=== PATIENT | male | born 1980 | race Caucasian/White ===

== ENCOUNTER → 2019-05-30 | Outpatient (CLI) | payer BC, OTHER ==
[~2019-05-30] MED LIST: ACET65TA OR; CELE1CAP4 OR; CETI10TA OR; DEPA500T OR; FLEXERIL OR; FLON0.05; GABA600T3 OR; LEXA1TAB OR; PERC5TAB8 OR; PERC7.5T8 OR; SERO1TAB3 OR; ZYRT10TA6 OR
--- NOTE | 2019-05-30 10:33 | REP ---
Clinical: Cough left clavicle pain with history of prior fixation. Technique: Internal rotation, external rotation, neutral view, and Y view of the left shoulder. Findings: There is evidence for prior clavicle fracture with orthopedic plate and screws in stable satisfactory position. The acromioclavicular and glenohumeral joints are relatively normal for age. The subacromial space is normal. No periarticular calcifications or loose bodies are identified. Surrounding soft tissues are normal. Impression: 1. Age-appropriate appearance to the acromioclavicular and glenohumeral joints. 2. Left clavicle with prior fixation remains stable. Electronically Signed by Jonah Monge MD 05/30/2019 10:25 A
== END ==
LOC: M LRY 09:59
PROVIDERS: ATTEND Physician Assistant
DX: Z98.890 Other specified postprocedural states (principal)

== ENCOUNTER 2023-12-26 10:49 | Emergency (ER) | payer OTHER ==
[~2023-12-26] VITALS: Ht 175.3 cm; Wt 107.0 kg
[~2023-12-26 10:49] MED LIST changes: -FLEXERIL OR; +FLEXERIL PO
[2023-12-26] MEDS ORDERED: LISI5TAB11 PO (11:20)
[2023-12-26] MEDS ORDERED: CITA10TA7 PO (11:20)
[2023-12-26] MEDS ORDERED: DIVA500T9 PO (11:20)
[2023-12-26] MEDS ORDERED: PANT20TA6 (11:20)
[2023-12-26] MEDS ORDERED: GABA-1171 (11:20)
[2023-12-26] MEDS ORDERED: QUET1TAB17 PO (11:20)
[2023-12-26] MEDS ORDERED: LABETALOL 100MG/20ML VIAL IV STA (12:44)
[2023-12-26] MEDS ORDERED: METOCLOPRAMIDE INJ 10MG/2ML VIAL IV ONE (13:05)
[2023-12-26] MEDS ORDERED: ISOVUE-370 76% 100ML VIAL As Ordered ONE (13:06)
[2023-12-26 13:09] LABS: BASO % 0.4 % (0.0-1.0); EOS # 0.1 10^3/uL (0.0-0.5); HEMATOCRIT 41.7 % (42.0-52.0); HEMOGLOBIN 14.3 g/dl (13.5-17.5); LYMPH # 1.8 10^3/uL (1.5-5.0); LYMPH % 24.6 % (24.0-44.0); MEAN CORPUSCULAR HEMOGLOBIN 29.4 pg (27.0-33.0); MEAN CORPUSCULAR HGB CONC 34.3 g/dl (32.0-36.5); MEAN CORPUSCULAR VOLUME 85.8 fl (80.0-96.0); MONO # 0.7 10^3/uL (0.0-0.8); MONO % 10.3 % (2.0-8.0); NEUTROPHILS # 4.5 10^3/uL (1.5-8.5); NEUTROPHILS % 63.4 % (36.0-66.0); PLATELET COUNT, AUTOMATED 275 10^3/uL (150-450); RED BLOOD COUNT 4.86 10^6/uL (4.30-6.10); WHITE BLOOD COUNT 7.1 10^3/uL (4.0-10.0)
[2023-12-26] MEDS ORDERED: NS 1,000 ML IV SCH (13:10)
[2023-12-26] MEDS ORDERED: hydroCHLOROthiazide 12.5 MG CAPSULE PO ONE (13:10)
[2023-12-26 13:19] LABS: INR 1.1; PROTHROMBIN TIME 13.9 SECONDS (12.5-14.5)
[2023-12-26 13:20] LABS: PARTIAL THROMBOPLASTIN TIME 32.8 SECONDS (24.8-34.2)
[2023-12-26 13:30] VITALS: BP 137/86; TEMP 97.9; O2SAT 97
[2023-12-26 13:33] LABS: CK-MB VALUE MASS < 1.0 NG/ML (<3.6)
[2023-12-26 13:35] LABS: BLOOD UREA NITROGEN 12 MG/DL (9-23); CALCIUM LEVEL 9.4 MG/DL (8.5-10.1); CARBON DIOXIDE LEVEL 28 MMOL/L (20-31); CHLORIDE LEVEL 105 MMOL/L (98-107); CREATININE FOR GFR 0.85 MG/DL (0.70-1.30); GLOMERULAR FILTRATION RATE > 60.0 (>60); GLUCOSE, FASTING 91 MG/DL (60-100); POTASSIUM SERUM 3.9 MMOL/L (3.5-5.1); SODIUM LEVEL 139 MMOL/L (136-145)
[2023-12-26 13:42] LABS: CPK CREATINE PHOSPHOKINASE 508 U/L (46-171); MB/CK RELATIVE INDEX 0.19 (< OR =4)
[2023-12-26 13:45] VITALS: O2SAT 97
[2023-12-26 14:00] VITALS: BP 125/88; O2SAT 97
[2023-12-26 15:00] VITALS: BP 136/98; O2SAT 96
[2023-12-26] MEDS ORDERED: HYDR12.55 PO (20:38)
== END 2023-12-26 21:03 | disposition home or self-care (01) ==
LOC: M ED 13:37
DX: R42 Dizziness and giddiness (principal); I10 Essential (primary) hypertension; F32.A Depression, unspecified; G43.909 Migraine, unspecified, not intractable, without status migrainosus; Z88.8 Allergy status to other drugs, medicaments and biological substances; Z79.899 Other long term (current) drug therapy; Z79.1 Long term (current) use of non-steroidal anti-inflammatories (NSAID)
CPT/HCPCS: 36415; 70450; 70496; 70498; 70544; 70551; 71045; 80048; 82550; 82553; 84484; 85025; 85610; 85730; 93005; 93041; 94760; 96361; 96374; 99285; J2765; Q9967

== ENCOUNTER 2023-12-29 10:51 | Emergency (ER) | payer OTHER ==
[~2023-12-29] VITALS: Ht 175.3 cm; Wt 107.1 kg
[~2023-12-29 10:51] MED LIST changes: +CITA10TA7 PO; +DIVA500T9 PO; +GABA-1171; +HYDR12.55 PO; +LISI5TAB11 PO; +PANT20TA6; +QUET1TAB17 PO
[2023-12-29] MEDS ORDERED: EPIN0.3I11 SQ (11:09)
[2023-12-29] MEDS: NITROGLYCERIN 0.4MG SUBL TABLET SL PRN ×2 (11:16→11:26)
[2023-12-29 11:17] LABS: BASO % 0.6 % (0.0-1.0); EOS # 0.2 10^3/uL (0.0-0.5); EOS % 2.2 % (0.0-3.0); HEMATOCRIT 41.9 % (42.0-52.0); HEMOGLOBIN 14.3 g/dl (13.5-17.5); LYMPH # 2.1 10^3/uL (1.5-5.0); MEAN CORPUSCULAR HEMOGLOBIN 29.4 pg (27.0-33.0); MEAN CORPUSCULAR HGB CONC 34.1 g/dl (32.0-36.5); MEAN CORPUSCULAR VOLUME 86.2 fl (80.0-96.0); MONO # 0.8 10^3/uL (0.0-0.8); MONO % 11.5 % (2.0-8.0); NEUTROPHILS # 3.8 10^3/uL (1.5-8.5); NEUTROPHILS % 55.4 % (36.0-66.0); PLATELET COUNT, AUTOMATED 255 10^3/uL (150-450); RED BLOOD COUNT 4.86 10^6/uL (4.30-6.10); WHITE BLOOD COUNT 6.8 10^3/uL (4.0-10.0)
[2023-12-29 11:26] VITALS: BP 130/83
[2023-12-29] MEDS ORDERED: ACETAMINOPHEN 325 MG TAB PO ONE (11:30)
[2023-12-29 11:33] LABS: INR 1.11
[2023-12-29 11:43] LABS: CK-MB VALUE MASS < 1.0 NG/ML (<3.6); LIPASE 29 U/L (12-53)
[2023-12-29 11:45] LABS: ALKALINE PHOSPHATASE 93 U/L (46-116); ALT/SGPT 61 U/L (7.0-40); AST/SGOT 26 U/L (<34); BILIRUBIN,DIRECT 0.3 MG/DL (<0.4); BILIRUBIN,TOTAL 0.8 MG/DL (0.3-1.2); BLOOD UREA NITROGEN 17 MG/DL (9-23); CALCIUM LEVEL 9.4 MG/DL (8.5-10.1); CARBON DIOXIDE LEVEL 27 MMOL/L (20-31); CHLORIDE LEVEL 107 MMOL/L (98-107); CPK CREATINE PHOSPHOKINASE 143 U/L (46-171); CREATININE FOR GFR 0.99 MG/DL (0.70-1.30); GLOMERULAR FILTRATION RATE > 60.0 (>60); GLUCOSE, FASTING 97 MG/DL (60-100); MB/CK RELATIVE INDEX 0.69 (< OR =4); POTASSIUM SERUM 4.1 MMOL/L (3.5-5.1); SODIUM LEVEL 139 MMOL/L (136-145); TOTAL PROTEIN 6.9 G/DL (5.7-8.2)
[2023-12-29 11:47] LABS: THYROID STIMULATING HORMONE 0.743 uIU/ML (0.55-4.78)
[2023-12-29] MEDS ORDERED: ISOVUE-370 76% 100ML VIAL As Ordered ONE (11:55)
[2023-12-29 13:03] LABS: CK-MB VALUE MASS < 1.0 NG/ML (<3.6)
[2023-12-29 13:04] LABS: CPK CREATINE PHOSPHOKINASE 118 U/L (46-171); MB/CK RELATIVE INDEX 0.84 (< OR =4)
[2023-12-29] MEDS ORDERED: HYDR12.55 PO (13:20)
[2023-12-29] MEDS ORDERED: CETI-24 PO (13:20)
[2023-12-29] MEDS ORDERED: NEUR100C PO (13:20)
[2023-12-29] MEDS ORDERED: CELE0.09 PO (13:20)
[2023-12-29] MEDS ORDERED: CYCL-707 PO (13:22)
[2023-12-29] MEDS ORDERED: FLUT15.819 (13:27)
[2023-12-29] MEDS ORDERED: HOME MED LIST COMPLETE! XX SCH (13:45)
[2023-12-29 13:52] VITALS: BP 142/92; TEMP 97.6; O2SAT 96
== END 2023-12-29 14:04 | disposition home or self-care (01) ==
LOC: M ED 10:51
DX: R07.9 Chest pain, unspecified (principal); I10 Essential (primary) hypertension; G43.909 Migraine, unspecified, not intractable, without status migrainosus; Z91.030 Bee allergy status; Z88.8 Allergy status to other drugs, medicaments and biological substances; Z79.891 Long term (current) use of opiate analgesic; Z79.811 Long term (current) use of aromatase inhibitors; Z79.899 Other long term (current) drug therapy
CPT/HCPCS: 36415; 71045; 71275; 80048; 80076; 82550; 82553; 83690; 83880; 84443; 84484; 85025; 85610; 93005; 93041; 94760; 99285; Q9967

== ENCOUNTER 2024-04-30 10:55 | Emergency (ER) | payer OTHER ==
[~2024-04-30] VITALS: Ht 175.3 cm; Wt 105.1 kg
[~2024-04-30 10:55] MED LIST changes: +CELE0.09 PO; +CETI-24 PO; +CYCL-707 PO; +EPIN0.3I11 SQ; +FLUT15.819; +NEUR100C PO
[2024-04-30 12:17] LABS: APPEARANCE, URINE HAZY (CLEAR); BACTERIA, URINE AUTO NEGATIVE (NEGATIVE); BILIRUBIN, URINE AUTO NEGATIVE (NEGATIVE); BLOOD, URINE BLOOD NEGATIVE (NEGATIVE); COLOR, URINE STRAW (YELLOW); GLUCOSE, URINE (UA) AUTO NEGATIVE (NEGATIVE); KETONE, URINE AUTO NEGATIVE (NEGATIVE); LEUKOCYTE ESTERASE, URINE AUTO NEGATIVE (NEGATIVE); NITRITE, URINE AUTO NEGATIVE (NEGATIVE); PROTEIN, URINE AUTO NEGATIVE (NEGATIVE); RBC, URINE AUTO 0 /HPF (0-3); SPECIFIC GRAVITY URINE AUTO 1.006 (1.002-1.035); SQUAMOUS EPITHELIAL CELL UR AU 0 /HPF (0-6); UROBILINOGEN, URINE AUTO 0.2 mg/dL (0.0-2.0); WBC, URINE AUTO 1 /HPF (0-3)
[2024-04-30 14:12] LABS: BASO % 0.5 % (0.0-1.0); EOS # 0.2 10^3/uL (0.0-0.5); EOS % 3.1 % (0.0-3.0); HEMATOCRIT 39.4 % (42.0-52.0); HEMOGLOBIN 13.5 g/dl (13.5-17.5); LYMPH # 2.1 10^3/uL (1.5-5.0); LYMPH % 34.1 % (24.0-44.0); MEAN CORPUSCULAR HEMOGLOBIN 29.7 pg (27.0-33.0); MEAN CORPUSCULAR HGB CONC 34.3 g/dl (32.0-36.5); MEAN CORPUSCULAR VOLUME 86.6 fl (80.0-96.0); MONO # 0.6 10^3/uL (0.0-0.8); MONO % 10.1 % (2.0-8.0); NEUTROPHILS # 3.2 10^3/uL (1.5-8.5); PLATELET COUNT, AUTOMATED 245 10^3/uL (150-450); RED BLOOD COUNT 4.55 10^6/uL (4.30-6.10); WHITE BLOOD COUNT 6.2 10^3/uL (4.0-10.0)
[2024-04-30 14:43] LABS: LIPASE 25 U/L (12-53)
[2024-04-30 14:45] LABS: ALBUMIN 4.3 G/DL (3.2-5.2); ALKALINE PHOSPHATASE 84 U/L (46-116); ALT/SGPT 38 U/L (7.0-40); AST/SGOT 19 U/L (<34); BILIRUBIN,DIRECT 0.3 MG/DL (<0.4); TOTAL PROTEIN 7.1 G/DL (5.7-8.2)
[2024-04-30 16:24] LABS: BLOOD UREA NITROGEN 17 MG/DL (9-23); CALCIUM LEVEL 9.4 MG/DL (8.5-10.1); CARBON DIOXIDE LEVEL 28 MMOL/L (20-31); CHLORIDE LEVEL 104 MMOL/L (98-107); CREATININE FOR GFR 0.89 MG/DL (0.70-1.30); GLOMERULAR FILTRATION RATE > 60.0 (>60); GLUCOSE, FASTING 82 MG/DL (60-100); POTASSIUM SERUM 3.8 MMOL/L (3.5-5.1); SODIUM LEVEL 137 MMOL/L (136-145)
[2024-04-30] MEDS: ONDANSETRON 4MG 2ML VIAL IV ONE (17:54)
[2024-04-30] MEDS: NS 1,000 ML IV ONE (17:55)
[2024-04-30] MEDS: KETOROLAC 30 MG/ML 1ML VIAL IV ONE (17:55)
[2024-04-30] MEDS ORDERED: MIRA3350 PO (20:37)
[2024-04-30 20:50] VITALS: BP 139/71; TEMP 97.6; O2SAT 98
== END 2024-04-30 20:49 | disposition home or self-care (01) ==
LOC: M ED 10:55
DX: K59.00 Constipation, unspecified (principal); K21.9 Gastro-esophageal reflux disease without esophagitis; I10 Essential (primary) hypertension; K57.92 Diverticulitis of intestine, part unspecified, without perforation or abscess without bleeding; K44.9 Diaphragmatic hernia without obstruction or gangrene; Z91.030 Bee allergy status; Z88.8 Allergy status to other drugs, medicaments and biological substances; Z79.811 Long term (current) use of aromatase inhibitors; Z79.899 Other long term (current) drug therapy
CPT/HCPCS: 74176; 80048; 80076; 81001; 83690; 85025; 96374; 96375; 99284; J1885; J2405

== ENCOUNTER 2024-07-13 11:33 | Emergency (ER) | payer OTHER ==
[~2024-07-13] VITALS: Ht 175.3 cm; Wt 106.1 kg
[~2024-07-13 11:33] MED LIST changes: +ASPI-226 PO; +HYDR12CA PO; +METO1TAB87 PO; +MIRA3350 PO; +NEXI40GR PO; +PANT40TA29 PO; +SUCR1TAB56 PO; +VALS1TAB67 PO
[2024-07-13] MEDS ORDERED: ISOVUE-370 76% 100ML VIAL As Ordered ONE (11:52)
[2024-07-13 11:54] VITALS: BP 137/92; TEMP 96.8; O2SAT 99
[2024-07-13 12:01] LABS: BASO # 0.1 10^3/uL (0.0-0.2); BASO % 0.9 % (0.0-1.0); EOS # 0.2 10^3/uL (0.0-0.5); EOS % 2.7 % (0.0-3.0); HEMATOCRIT 36.7 % (42.0-52.0); HEMOGLOBIN 12.4 g/dl (13.5-17.5); LYMPH % 36.6 % (24.0-44.0); MEAN CORPUSCULAR HEMOGLOBIN 29.7 pg (27.0-33.0); MEAN CORPUSCULAR HGB CONC 33.8 g/dl (32.0-36.5); MONO # 0.7 10^3/uL (0.0-0.8); MONO % 13.3 % (2.0-8.0); NEUTROPHILS # 2.6 10^3/uL (1.5-8.5); NEUTROPHILS % 46.1 % (36.0-66.0); PLATELET COUNT, AUTOMATED 206 10^3/uL (150-450); RED BLOOD COUNT 4.17 10^6/uL (4.30-6.10); WHITE BLOOD COUNT 5.6 10^3/uL (4.0-10.0)
[2024-07-13 12:16] LABS: INR 1.19; PARTIAL THROMBOPLASTIN TIME 35.7 SECONDS (24.8-34.2); PROTHROMBIN TIME 14.8 SECONDS (12.5-14.5)
[2024-07-13 12:26] LABS: BLOOD UREA NITROGEN 22 MG/DL (9-23); CALCIUM LEVEL 9.1 MG/DL (8.5-10.1); CARBON DIOXIDE LEVEL 28 MMOL/L (20-31); CHLORIDE LEVEL 109 MMOL/L (98-107); CREATININE FOR GFR 0.94 MG/DL (0.70-1.30); GLOMERULAR FILTRATION RATE > 60.0 (>60); GLUCOSE, FASTING 86 MG/DL (60-100); POTASSIUM SERUM 3.7 MMOL/L (3.5-5.1); SODIUM LEVEL 142 MMOL/L (136-145)
[2024-07-13] MEDS: NS 1,000 ML IV ONE (14:03)
[2024-07-13] MEDS: diphenhydrAMINE 50MG/ML VIAL IV ONE (14:39)
[2024-07-13] MEDS: KETOROLAC 30 MG/ML 1ML VIAL IV ONE (14:39)
[2024-07-13] MEDS: METOCLOPRAMIDE INJ 10MG/2ML VIAL IV ONE (14:39)
[2024-07-13 16:20] VITALS: BP 141/94; TEMP 98.2; O2SAT 100
== END 2024-07-13 16:26 | disposition home or self-care (01) ==
LOC: M ED 11:33 → EDBD 11:33 → M ED 16:26
DX: G43.809 Other migraine, not intractable, without status migrainosus (principal); K44.9 Diaphragmatic hernia without obstruction or gangrene; K21.9 Gastro-esophageal reflux disease without esophagitis; F41.9 Anxiety disorder, unspecified; F43.10 Post-traumatic stress disorder, unspecified; F32.9 Major depressive disorder, single episode, unspecified; Z87.820 Personal history of traumatic brain injury; Z91.030 Bee allergy status; Z88.8 Allergy status to other drugs, medicaments and biological substances; Z79.82 Long term (current) use of aspirin; Z79.899 Other long term (current) drug therapy
CPT/HCPCS: 70450; 70496; 70498; 71045; 80047; 80048; 85025; 85610; 85730; 93005; 93041; 94760; 96361; 96374; 99285; J1200; J1885; J2765; Q9967

== ENCOUNTER 2024-07-25 09:26 | Day surgery (SDC) | payer OTHER ==
[~2024-07-25] VITALS: Ht 175.3 cm; Wt 104.2 kg
[2024-07-25] MEDS: NS 1,000 ML IV ONE (10:04)
[2024-07-25] MEDS ORDERED: propofoL 200 MG/20 ML VIAL As Ordered ONE (10:17)
[2024-07-25] MEDS ORDERED: LIDOCAINE 2% 100MG/5ML SDV (FOR ANES.) As Ordered ONE (10:17)
[2024-07-25 11:31] VITALS: TEMP 98.8
[2024-07-25 11:45] VITALS: BP 161/95; O2SAT 98
== END 2024-07-25 12:01 | disposition home or self-care (01) ==
LOC: M OPP 09:26
PROVIDERS: ATTEND Internal Medicine Gastroenterology
DX: Z86.010 Personal history of colon polyps (principal); D12.6 Benign neoplasm of colon, unspecified; K64.0 First degree hemorrhoids; K57.30 Diverticulosis of large intestine without perforation or abscess without bleeding; K44.9 Diaphragmatic hernia without obstruction or gangrene; K29.50 Unspecified chronic gastritis without bleeding; R12 Heartburn; I10 Essential (primary) hypertension; Z79.1 Long term (current) use of non-steroidal anti-inflammatories (NSAID); Z79.82 Long term (current) use of aspirin; Z79.891 Long term (current) use of opiate analgesic; Z79.899 Other long term (current) drug therapy; Z88.8 Allergy status to other drugs, medicaments and biological substances; Z91.030 Bee allergy status

== ENCOUNTER 2025-03-31 14:10 | Emergency (ER) | payer OTHER ==
[~2025-03-31] VITALS: Ht 175.3 cm; Wt 240.0 kg
[2025-03-31 14:32] LABS: BASO % 0.4 % (0.0-1.0); EOS # 0.3 10^3/uL (0.0-0.5); EOS % 3.1 % (0.0-3.0); HEMATOCRIT 36.8 % (42.0-52.0); HEMOGLOBIN 12.8 g/dl (13.5-17.5); LYMPH # 2.2 10^3/uL (1.5-5.0); LYMPH % 23.4 % (24.0-44.0); MEAN CORPUSCULAR HEMOGLOBIN 29.9 pg (27.0-33.0); MEAN CORPUSCULAR HGB CONC 34.8 g/dl (32.0-36.5); MONO # 1.3 10^3/uL (0.0-0.8); MONO % 13.7 % (2.0-8.0); NEUTROPHILS # 5.6 10^3/uL (1.5-8.5); PLATELET COUNT, AUTOMATED 232 10^3/uL (150-450); RED BLOOD COUNT 4.28 10^6/uL (4.30-6.10); WHITE BLOOD COUNT 9.5 10^3/uL (4.0-10.0)
[2025-03-31] MEDS: ACETAMINOPHEN *IV* 1,000 MG in IV 1 EA IV ONE (14:42)
[2025-03-31 14:47] LABS: INR 0.99; PARTIAL THROMBOPLASTIN TIME 29.2 SECONDS (24.8-34.2); PROTHROMBIN TIME 13.4 SECONDS (12.5-14.5)
[2025-03-31 15:06] LABS: CPK CREATINE PHOSPHOKINASE 229 U/L (46-171)
[2025-03-31 15:11] LABS: ALBUMIN 3.7 G/DL (3.2-5.2); ALKALINE PHOSPHATASE 95 U/L (40-129); ALT/SGPT 46 U/L (7.0-40); AST/SGOT 21 U/L (<34); BILIRUBIN,DIRECT 0.2 MG/DL (<0.4); BILIRUBIN,TOTAL 0.7 MG/DL (0.3-1.2); BLOOD UREA NITROGEN 15 MG/DL (9-23); CALCIUM LEVEL 8.5 MG/DL (8.5-10.1); CARBON DIOXIDE LEVEL 27 MMOL/L (20-31); CHLORIDE LEVEL 100 MMOL/L (98-107); CK-MB VALUE MASS < 1.0 NG/ML (<3.6); CREATININE FOR GFR 0.89 MG/DL (0.70-1.30); FREE T4 1.48 NG/DL (0.89-1.76); GLOMERULAR FILTRATION RATE > 90.0 (>60); GLUCOSE, FASTING 103 MG/DL (60-100); MB/CK RELATIVE INDEX 0.43 (< OR =4); POTASSIUM SERUM 3.1 MMOL/L (3.5-5.1); SODIUM LEVEL 138 MMOL/L (136-145); THYROID STIMULATING HORMONE 1.572 uIU/ML (0.55-4.78); TOTAL PROTEIN 6.6 G/DL (5.7-8.2)
[2025-03-31] MEDS ORDERED: ISOVUE-370 76% 100ML VIAL As Ordered ONE (15:30)
[2025-03-31 16:37] LABS: CK-MB VALUE MASS < 1.0 NG/ML (<3.6)
[2025-03-31 16:39] LABS: CPK CREATINE PHOSPHOKINASE 200 U/L (46-171)
[2025-03-31] MEDS: KETOROLAC 30 MG/ML 1ML VIAL IV ONE (16:57)
[2025-03-31 17:00] VITALS: BP 121/76; TEMP 97.9; O2SAT 97
== END 2025-03-31 17:17 | disposition home or self-care (01) ==
LOC: EDBD 14:10 → EDSEX 14:10 → M ED 14:10
DX: R07.9 Chest pain, unspecified (principal); K21.9 Gastro-esophageal reflux disease without esophagitis; J98.11 Atelectasis; K44.9 Diaphragmatic hernia without obstruction or gangrene; I10 Essential (primary) hypertension; F41.9 Anxiety disorder, unspecified; F32.A Depression, unspecified; Z91.030 Bee allergy status; Z88.8 Allergy status to other drugs, medicaments and biological substances; Z79.82 Long term (current) use of aspirin; Z79.899 Other long term (current) drug therapy
CPT/HCPCS: 71045; 71275; 80047; 80048; 80076; 82550; 82553; 83880; 84439; 84443; 84484; 85025; 85610; 85730; 93005; 93041; 94760; 96365; 96375; 99285; J0131; J1885; Q9967